=== PATIENT | male | born 2005 | race Caucasian/White ===

== ENCOUNTER 2024-10-30 16:30 | Day surgery (SDC) | payer OTHER, SELFPAY ==
[2024-10-30] VITALS (13 sets, daily range): BP systolic 106–131; BP diastolic 65–88; PULSE 52–85; RESP 16–18; TEMP 36.1–36.6; O2SAT 98–100; BMI 19.7; BMI 20.7
--- NOTE | 2024-10-30 16:54 | ED_ITS ---
HPI - Abdominal Pain General Date Seen: 10/30/24 Chief Complaint: Abdominal Pain Stated Complaint: pain in lower right side of abdomen Time Seen by Provider: 10/30/24 16:31 Source: patient, family, RN notes reviewed and old records reviewed Mode of arrival: ambulatory Limitations: no limitations History of Present Illness HPI narrative: Patient is a 19-year-old gentleman who presents here with the worst abdominal pain he has ever had, he describes initially starting 1.5 hours ago, is periumbilical region has now spread across his lower abdomen right greater than left. He has no radiation to his back or into his scrotum, he describes a little bit of radiation up to his upper abdominal region. He does know what makes it better or worse, except that it has worsened as it has been over the time course. He has taken no medications for the pain but his mother manage to talk him into taking some Gas-X approximately 1 hour ago that did not help. Denies any fevers chills or sweats no history of any bowel issues associated with this such as diarrhea inability to pass gas, or worsening with this. He did make himself retch a couple times, and feels nauseous. Denies any dysuria frequency or blood in his urine. He has no previous history of any abdominal surgeries. Or any abdominal problems. He does not take any chronic medications and has no known allergies. Denies any alcohol, smoking, or drug use. 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 For mostly [employer] Related Data Home Medications ?Medication ?Instructions ?Recorded ?Confirmed No Known Home Medications 10/30/2410/06 Allergies Allergy/AdvReac Type Severity Reaction Status Date / Time No Known Drug Allergies Allergy Verified 10/30/24 16:37 Review of Systems Status of ROS Reports: 10 or more systems reviewed and unremarkable except as noted in History and below [facility] Social History Smoking Status: Never smoker How often do you have a drink containing alcohol: 2-3 times a week How many standard drinks containing alcohol do you have on a typical day: 3 or 4 How often do you have six or more drinks on one occasion: Never AUDIT-C Alcohol total score: 4 Non-prescribed substance use: denies use Exam Narrative: Exam Narrative: On examination in room 3 he is in some mild distress, nontoxic looking pupils equal round reactive to light , no scleral icterus and his vital signs are normal. TMs are normal oropharynx normal neck is supple there is no meningismus chest is good air entry bilateral with no wheezing crackles noted his heart sounds are normal. Easy respirations, scaphoid abdomen with tenderness I would describe as moderate in his lower abdominal region right greater than left, he does not have any peritoneal signs are localization. There is no masses, bowel sounds are quiet. Normal groins bilaterally with absence of any hernias normal male genitalia, with testicles both descended and normal no tenderness to palpation, circumcised. Skin reveals no petechiae rashes moves all extremities independently and well, normal power his upper lower extremities, is neurologically intact. Const: Vital Signs, click to edit/add: Vital Signs - 24 hr 10/30/24 16:33 10/30/24 17:18 10/30/24 17:33 Temperature 97.0 F L Pulse Rate 52 L 59 L Pulse Rate [Pulse Oximeter] 59 L Respiratory Rate 16 Blood Pressure Blood Pressure [Ri ght Upper Arm] 121/74 Pulse Oximetry 100 100 100 Oxygen Delivery Me thod Room Air 10/30/24 17:34 10/30/24 17:35 10/30/24 17:41 Temperature Pulse Rate 53 L 68 75 Pulse Rate [Pulse Oximeter] Respiratory Rate 16 16 Blood Pressure 126/88 131/88 Blood Pressure [Ri ght Upper Arm] Pulse Oximetry 100 100 100 Oxygen Delivery Me thod 10/30/24 17:45 Temperature Pulse Rate 81 Pulse Rate [Pulse Oximeter] Respiratory Rate Blood Pressure Blood Pressure [Ri ght Upper Arm] Pulse Oximetry 100 Oxygen Delivery Me thod Course Reevaluation(s) Time of Reevaluation #1: 18:31 Reevaluation #1: Discussed with patient and patient's mother, that Dr. Fernandes is currently in the operating room, and she should be out around 9:00 p.m.. Surgery will be after that. We are safe to wait. He will not eat to be NPO we will give him more pain medication as needed. She did have some questions about whether not he would stay overnight, given the late hour that is usually the case but I will leave that up to the surgeon and the patient. Patient is ASA 1 for surgery. Consultations Consultation #1: Dr. Fernandes Time: 18:21 Consultation #2: I discussed the case with the general surgeon on-call, currently in the operating room, but expected to do this laparoscopically in a few hours. We will keep the patient in the emergency room keep him NPO and pain under control. Vital Signs Vital signs: Initial Vital Signs Temperature 97.0 F L 10/30/24 16:33 Temperature Source Temporal Artery Scan 10/30/24 16:33 Pulse Rate 59 L 10/30/24 16:33 Respiratory Rate 16 10/30/24 16:33 Blood Pressure 121/74 10/30/24 16:33 Blood Pressure Mean 89 10/30/24 16:33 Blood Pressure Position Sitting 10/30/24 16:33 Pulse Oximetry 100 10/30/24 16:33 Oxygen Delivery Method Room Air 10/30/24 16:33 Vital Signs Temperature 97.0 F L 10/30/24 16:33 Pulse Rate 59 L 10/30/24 16:33 Respiratory Rate 16 10/30/24 16:33 Blood Pressure 121/74 10/30/24 16:33 Pulse Oximetry 100 10/30/24 16:33 Oxygen Delivery Method Room Air 10/30/24 16:33 Temperature 97.0 F L 10/30/24 16:33 Pulse Rate 81 10/30/24 17:45 Respiratory Rate 16 10/30/24 17:41 Blood Pressure 131/88 10/30/24 17:41 Pulse Oximetry 100 10/30/24 17:45 Oxygen Delivery Method Room Air 10/30/24 16:33 Medications Administered Medications: Discontinued Medications Generic Name Dose Route Start Last Admin Trade Name Khalifq PRN Reason Stop Dose Admin Hydromorphone HCl 0.5 mg 10/30/24 16:51 10/30/24 17:11 Hydromorphone 0.5 Mg/0.5 Ml Inj IVP 10/30/24 16:52 0.5 mg ONCE ONE Administration Sodium Chloride 1,000 mls @ 1,000 mls/hr 10/30/24 17:00 10/30/24 18:10 0.9 % Sodium Chloride 1000 Ml IV 10/30/24 17:59 Infused .Q1H BLANCO Infusion Ketorolac Tromethamine 30 mg 10/30/24 16:51 10/30/24 17:11 Ketorolac 30 Mg/Ml Inj IVP 10/30/24 16:52 30 mg ONCE ONE Administration Ondansetron HCl 4 mg 10/30/24 16:51 10/30/24 17:12 Ondansetron 2 Mg/Ml Inj IVP 10/30/24 16:52 4 mg ONCE ONE Administration MDM - Abdominal Pain MDM Narrative Medical decision making narrative: During this evaluation of this patient I considered multiple differential diagnosis is which included the life-threatening such as appendicitis, aortic aneurysm, mesenteric ischemia, bowel perforation, volvulus, and bowel obstruction. Other differential diagnosis is include but are not limited to cholecystitis, pancreatitis, hepatitis, gastritis, GERD, diverticulitis, peptic ulcer disease, pyelonephritis/UTI, renal colic/stone, testicular torsion as well as other acute scrotal processes, inflammatory bowel disease, as well as other etiologies Medical Records Attestation: I reviewed the patient's medical records. Lab Data Attestation: I reviewed the patient's lab results. Labs: Lab Results 10/30/24 10/30/24 Range/Units 17:00 18:10 WBC 11.50 H (4.50-11.00) K/uL RBC 4.82 (4.30-5.90) m/uL Hgb 14.3 (13.5-17.5) gm/dL Hct 41.9 (37.0-53.0) % MCV 87 (80-100) fL MCH 30 (26-34) pg MCHC 34 (32-36) gm/dL RDW Coeff of Mary Grace 12.6 (11.5-15.5) % Plt Count 225 (140-440) K/uL Neut % (Auto) 82.8 H (42.0-72.0) % Lymph % (Auto) 10.3 L (20-44) % Millard % (Auto) 6.2 (0.0-11.0) % Eos % (Auto) 0.3 (0.0-7.0) % Baso % (Auto) 0.3 (0.0-3.0) % Neut # (Auto) 9.50 H (1.7-7.0) K/uL Lymph # (Auto) 1.20 (0.90-2.90) K/uL Millard # (Auto) 0.70 (0.00-0.90) K/UL Eos # (Auto) 0.00 (0.00-0.50) K/uL Baso # (Auto) 0.00 (0.00-0.30) K/uL Abs Immat Gran (auto) 0.00 (0.00-0.30) K/uL Imm/Tot Granulo (auto) 0.1 % Sodium 137 (135-149) mmol/L Potassium 3.9 (3.6-5.1) mmol/L Chloride 103 (96-114) mmol/L Carbon Dioxide 26 (20-32) mmol/L Anion Gap 8 (7-15) mEq/L BUN 14 (5-24) mg/dL Creatinine 0.9 (0.5-1.5) mg/dL Estimated Creat Clear 117.45 Estimated GFR 125 ml/min Glucose 113 (60-115) mg/dL Lactate 1.0 (0.5-1.9) mmol/L Calcium 9.3 (8.4-10.6) mg/dL Total Bilirubin 0.8 (0.1-1.5) mg/dL Direct Bilirubin 0.4 (0.0-0.5) mg/dL AST 31 (12-35) U/L ALT 14 (4-50) U/L Alkaline Phosphatase 54 (40-150) U/L C-Reactive Protein < 0.5 L (0.5-1.0) mg/dL Total Protein 7.7 (6.0-8.3) g/dL Albumin 4.6 (3.3-5.0) g/dL Amylase 73 (18-89) U/L Lipase 34 (23-300) U/L Procalcitonin 0.04 (<0.50) ng/mL Urine Color Yellow (Yellow) Urine Appearance Clear (Clear) Urine pH 7.0 (5.0-8.5) Ur Specific [place] 1.015 (1.000-1.030) Urine Protein Negative (Negative) Urine Glucose (UA) Negative (Negative) Urine Ketones 1+ A (Negative) Urine Blood Negative (Negative) Urine Nitrite Negative (Negative) Urine Bilirubin Negative (Negative) Urine Urobilinogen 0.2 (0.2-1.0) Ur Leukocyte Esterase Negative (Negative) Urine RBC 0-2 (0-2) Urine WBC 0-2 (0-5) Ur Squamous Epith Cells None (None-Few) Urine Bacteria None (None) Imaging Data CT scan - abdomen: Attestation: I have reviewed the pertinent imaging results. My impression: Acute appendicitis with appendicolith. Radiologist's impression: [address] [address] Diagnostic Imaging Report Patient: Wes Dejesus MR#: [id number] : 2005 Acct:[id number] Loc: ED Service Date: 10/30/[address]: Ordering Physician: Sharif Hill M.D. Date of Service: 10/30/24 Procedure(s): CT abdomen pelvis w con Accession Number(s): [id number] cc: Provider,Not a Local; Sharif Hill M.D.~ For Patients: As a result of the Cures Act, medical imaging exams and procedure reports are released immediately into your electronic medical record. You may view this report before your referring provider. If you have questions, please contact your health care provider. INDICATION: Abdominal pain, right lower and periumbilical. TECHNIQUE: CT abdomen and pelvis acquired with 69 cc Isovue 370 IV contrast. COMPARISON: None. FINDINGS: Lower chest: Unremarkable. Liver: Normal in size and attenuation. No suspicious masses. Gallbladder and bile ducts: No stones or inflammation. No biliary dilatation. Pancreas: No mass or inflammation. Spleen: Normal in size. No masses. Few calcified granulomas. Adrenal glands: No suspicious mass. Kidneys: Bilateral kidneys are normal in size with symmetric enhancement. No nephrolithiasis or hydronephrosis. GI tract: No findings of bowel obstruction. Dilatation of the appendix measuring up to 8 mm (2/111 and ). Minimal periappendiceal inflammatory changes. Appendicular lith at the base. No adjacent free air or free fluid. No loculated fluid collection. Vasculature: Abdominal aorta is normal in caliber. Lymph nodes: No lymphadenopathy. Peritoneum/Abdominal Wall: Minimal free fluid in pelvis, likely physiologic. Prostate is normal in size. Pelvis: Minimal free fluid in pelvis. Bones: Unremarkable for age. IMPRESSION: Dilated appendix measuring up to 8 millimeter, appendicular lith at the base with very minimal periappendicular inflammation. Findings are concerning for appendicitis in the appropriate clinical settings. Please note that all CT scans at this facility use dose modulation, iterative reconstruction, and/or weight-based dosing when appropriate to reduce radiation dose to as low as reasonably achievable. Dictated by Kanchan Henderson MD @ 10/30/2024 6:11:18 PM (Electronically Signed) Discharge Plan Discharge Clinical Impression: Acute appendicitis Patient Disposition: XFER to OR Condition: Stable Instructions: Exploratory Laparoscopy (DC) Follow Up/Referrals: Provider,Not a Local [Primary Care Provider, Family Practice]
--- OUTSIDE RECORDS SUMMARY | 2024-10-30 17:07 | XMS_ITS | Clinical Summary ---
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 Well child check 12/23/2013 Immunizations Immunization Administration Dates Next Due AMB Influenza, IIV3 (Age >=3 years)(Flu Clinic Only) 12/20/2008 DTaP 08/10/2004 [id number] (Pediarix) 2003,2003,0 2003 DTaP-IPV (Kinrix) 05/28/2008 HIB PRP-OMP (PedvaxHIB) 08/10/2004,2003, Hepatitis A (Peds) 05/21/2016,10/14/2015 Hepatitis B (Peds) 2003 Influenza A (H1N1), Inactiva dimas (Age >=3 Years) 01/28/2009 Influenza,LAIV4 Live Intrana shima (Flumist) 12/18/2013 MENINGOCOCCAL VACCINE 2 VIAL 2MO-55YO (MENVEO) 10/06/2020,10/14/2015 MMR 05/28/2008,05/05/2004 Pneumococcal conj 7-Valent (Prevnar 7) 0 08/10/2004,2003,2003,07/01 Tdap 10/14/2015 Varicella Vaccine 05/28/2008,05/05/2004 Family History Medical History Relation Name Comments Good Health Father Jaison Good Health Mother Criss Relation Name Status Comments Father Jaison Mother Criss Social History Tobacco Use Types Packs/Day Years Used Date Smoking Tobacco: Never Smokeless Tobacco: Never Alcohol Use Standard Drinks/Week Comments No 0 (1 standard drink = 0.6 oz pur e alcohol) PHQ-2 Answer Date Recorded PHQ-2 TOTAL SCORE 1 03/05/2022 Financial Resource Strain Answer Date R ecorded Difficulty of Paying Living Expenses Not on file 03/07/2021 Difficulty of Paying Living Expenses Not on file 03/07/2021 Sex and Gender Information Value Date Recorded Sex Assigned at Not on file 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 Gender Identity Not on file Sexual Orientation Not on file Occupation Industry Job Start Date Job End Date Student Not on file Not on file Not on file Obstetrics History Last Filed Vital Signs Vital Sign Reading Time Taken Comments Blood Pressure 98/74 03/05/2022 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 Pulse 64 03/05/2022 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 Temperature 36.8 C (98.2 F) 03/05/2022 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 Respiratory Rate 16 03/05/2022 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 Oxygen Saturation 98% 12/12/2019 7:59 PM CDT Inhaled Oxygen Concentration - - Weight 62.6 kg (138 lb) 03/05/2022 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 Height 178.4 cm (5' 10.25) 03/05/2022 1:[address] Body Mass Index 19.66 03/05/2022 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 Plan of Treatment Health Maintenance Due Date Last Done Comments HIV for age 15-65 2018 HPV series for age 9-26 (1 - Male 3-dose series) 2018 Hepatitis C screening for age 18-79 2021 BMI (ht and wt on same day) for age 18+ 03/05/2023 03/05/2022 Depression screening for age 12+ 03/05/2023 03/05/2022, 10/06/2020, 10/19/2018, Additional history exists COVID-19 vaccine series (2023- season) 2023 Influenza Vaccine (#1) 2024 12/18/2013, 2008 Tetanus booster 10/13/2025 10/14/2015 Hepatitis B series for 19+ Completed 11/03, 2003, 2003, Additional history exists Pneumococcal series for age 6-49 Aged Out 08/10/2004, 2003, 2003, Additional history exists No longer eligible based on patient's age to complete this topic Meningococcal series for age 11-21 Completed 10/06/2020, 10/14/2015 Insurance [facility] Care Teams Film Editor Relationship Specialty Start Date End Date Pilo Bhardwaj MD PCP - General Family Practice 06/27/18
[2024-10-30 17:08] LABS: Lactate* 1.0 mmol/L (0.5-1.9)
[2024-10-30] MEDS: ONDANSETRON 2 MG/ML inj 4 MG IVP (17:12)
[2024-10-30 17:14] LABS: Hematocrit 41.9 % (37.0-53.0); Hemoglobin* 14.3 gm/dL (13.5-17.5); Immature Granulocytes Pct Auto 0.1 %; Mean Corpuscular HGB Conc 34 gm/dL (32-36); Mean Corpuscular Hemoglobin 30 pg (26-34); Mean Corpuscular Volume 87 fL (80-100); RDW Coefficient of Variation % 12.6 % (11.5-15.5); Red Blood Count 4.82 m/uL (4.30-5.90); White Blood Count* 11.50 K/uL (4.50-11.00)
[2024-10-30 17:24] LABS: Albumin* 4.6 g/dL (3.3-5.0); Chloride* 103 mmol/L (96-114); Potassium* 3.9 mmol/L (3.6-5.1); Sodium* 137 mmol/L (135-149)
[2024-10-30 17:26] LABS: Blood Urea Nitrogen* 14 mg/dL (5-24); Creatinine* 0.9 mg/dL (0.5-1.5); Est. Creatinine Clearance* 117.45; Estimated Glomerular Filt Rate 125 ml/min
[2024-10-30 17:27] LABS: Alanine Aminotransferase* 14 U/L (4-50); Alkaline Phosphatase* 54 U/L (40-150); Anion Gap 8 mEq/L (7-15); Aspartate Amino Transferase* 31 U/L (12-35); Bilirubin Direct* 0.4 mg/dL (0.0-0.5); Bilirubin Total* 0.8 mg/dL (0.1-1.5); Calcium* 9.3 mg/dL (8.4-10.6); Carbon Dioxide* 26 mmol/L (20-32); Glucose* 113 mg/dL (60-115); Total Protein* 7.7 g/dL (6.0-8.3)
[2024-10-30 17:44] LABS: Procalcitonin* 0.04 ng/mL (<0.50)
[2024-10-30 17:50] LABS: Immature Granulocytes Abs Auto 0.00 K/uL (0.00-0.30); Lymphocytes Absolute Auto 1.20 K/uL (0.90-2.90); Slide Review Reflex No
[2024-10-30 18:18] LABS: Appearance Urine Clear (Clear)
--- NOTE | 2024-10-30 18:59 | PM.GSHP ---
History of Present Illness History of Present Illness Date Seen: 10/30/24 Chief complaint: pain in lower right side of abdomen Narrative: Wes Dejesus is a 19 year old male who presents to the emergency department this evening after developing intense abdominal pain noted in his entire stomach around 2:30 p.m.. The pain progressed and so he came into the emergency department. He had nausea with this as well. He has not had any bowel changes. No urinary symptoms. The pain is not necessarily worse with any activity such as movement. Pain medication made it less intense. It has not migrated and at what is mainly across his lower abdomen. No fevers. He has not had anything like this before. He is otherwise healthy. He has not had surgery before no past medical history. [facility] Social History (Updated 10/30/24 @ 21:19 by Kristine Fernandes MD) Narrative: He works as a [employer] Smoking Status: Never smoker How often do you have a drink containing alcohol: 2-3 times a week How many standard drinks containing alcohol do you have on a typical day: 3 or 4 How often do you have six or more drinks on one occasion: Never AUDIT-C Alcohol total score: 4 Non-prescribed substance use: denies use Meds Home Medications and Allergies Home Medications ?Medication ?Instructions ?Recorded ?Confirmed ?Type No Known Home Medications 10/30/24 10/30/24 History Allergies Allergy/AdvReac Type Severity Reaction Status Date / Time No Known Drug Allergies Allergy Verified 10/30/24 16:37 Exam Narrative: Exam Narrative: General appearance: Alert, cooperative, and in no distress Eyes: PERRLA, eye lids clear, and sclera white HENT Head: Normocephalic Ears: External ears normal Pulmonary: Clear to auscultation bilaterally Cardiovascular Heart: Regular rate and rhythm Extremities: warm and well perfused Gastrointestinal Abdominal: No scars. Patient is very mildly tender in the lower abdomen. Suprapubic region seems to be the most tender with very very mild rebound. Musculoskeletal: Extremities: Upper: Both upper extremities have normal joint range of motion and intact strength. Lower: Both lower extremities have normal joint range of motion and intact strength. Skin: Normal skin color, texture, and turgor. Neurologic: No focal deficits Psychiatric: Alert, oriented, cooperative, normal affect. Const: Vital Signs, click to edit/add: Vital Signs - 24 hr 10/30/24 16:33 10/30/24 17:18 10/30/24 17:33 Temperature 97.0 F L Pulse Rate 52 L 59 L Pulse Rate [Pulse Oximeter] 59 L Respiratory Rate 16 Blood Pressure Blood Pressure [Ri ght Upper Arm] 121/74 Pulse Oximetry 100 100 100 Oxygen Delivery Me thod Room Air 10/30/24 17:34 10/30/24 17:35 10/30/24 17:41 Temperature Pulse Rate 53 L 68 75 Pulse Rate [Pulse Oximeter] Respiratory Rate 16 16 Blood Pressure 126/88 131/88 Blood Pressure [Ri ght Upper Arm] Pulse Oximetry 100 100 100 Oxygen Delivery Me thod 10/30/24 17:45 10/30/24 18:00 10/30/24 18:01 Temperature Pulse Rate 81 85 79 Pulse Rate [Pulse Oximeter] Respiratory Rate 16 Blood Pressure 126/80 Blood Pressure [Ri ght Upper Arm] Pulse Oximetry 100 99 98 Oxygen Delivery Me thod Results Results Labs: White blood cell count is elevated at 11. CRP less than 0.5. LFTs normal. Lactate normal. Electrolytes within normal limits Abdomen CT scan report/results: report reviewed and image reviewed Additional studies: INDICATION: Abdominal pain, right lower and periumbilical. TECHNIQUE: CT abdomen and pelvis acquired with 69 cc Isovue 370 IV contrast. COMPARISON: None. FINDINGS: Lower chest: Unremarkable. Liver: Normal in size and attenuation. No suspicious masses. Gallbladder and bile ducts: No stones or inflammation. No biliary dilatation. Pancreas: No mass or inflammation. Spleen: Normal in size. No masses. Few calcified granulomas. Adrenal glands: No suspicious mass. Kidneys: Bilateral kidneys are normal in size with symmetric enhancement. No nephrolithiasis or hydronephrosis. GI tract: No findings of bowel obstruction. Dilatation of the appendix measuring up to 8 mm (2/111 and 5/). Minimal periappendiceal inflammatory changes. Appendicular lith at the base. No adjacent free air or free fluid. No loculated fluid collection. Vasculature: Abdominal aorta is normal in caliber. Lymph nodes: No lymphadenopathy. Peritoneum/Abdominal Wall: Minimal free fluid in pelvis, likely physiologic. Prostate is normal in size. Pelvis: Minimal free fluid in pelvis. Bones: Unremarkable for age. IMPRESSION: Dilated appendix measuring up to 8 millimeter, appendicular lith at the base with very minimal periappendicular inflammation. Findings are concerning for appendicitis in the appropriate clinical settings. Please note that all CT scans at this facility use dose modulation, iterative reconstruction, and/or weight-based dosing when appropriate to reduce radiation dose to as low as reasonably achievable. Dictated by Kanchan Henderson MD @ 10/30/2024 6:11:18 PM Progress Note:A&P Assessment and plan (1) Acute appendicitis: Status: Acute Plan The patient is a 19-year-old male with acute appendicitis. We discussed that appendectomy is the preferred treatment for this. This can most often be done laparoscopically. We discussed risks and benefits of the procedure including but not limited to bleeding, need for conversion to open, risk of injury to other structures, need for possible bowel resection, and abscess formation. The patient understands that the risk of abscess is higher if the appendix is perforated. It is early in the course of his illness and there is currently no evidence of perforation at this time. Unfortunately because of an emergency we will be unable to proceed to the OR this evening, however we will plan on surgery 1st thing in the morning. He should be NPO at least 8 hours prior to surgery. At this time he would like to eat and so it is okay for him to have a snack but he can have nothing further after 10:00 p.m.. He did sign informed consent. We will plan on surgery 1st thing in the morning.
[2024-10-31] VITALS (15 sets, daily range): BP systolic 94–114; BP diastolic 51–73; PULSE 41–58; RESP 12–16; TEMP 36.7–36.8; O2SAT 95–99
[2024-10-31] MEDS: HYDROCODONE-ACETAMIN 5-325 MG 1 TAB PO
[2024-10-31] MEDS: LACTATED RINGERS 1000 ML 1,000 ML 125 ML IV (01:21)
[2024-10-31] MEDS: PIPERACILLIN/TAZOBACTAM 3.375 GM in 0.9 % SODIUM CHLORIDE Mini-bag 100 ML IVPB ×2 (05:32)
--- NOTE | 2024-10-31 06:40 | P.ANES_ITS ---
Anesthesia Charges Start Date/Time Anesthesia Start Date: 10/31/24 Anesthesia Start Time: 06:45 Stop Date/Time Anesthesia Stop Date: 10/31/24 Anesthesia Stop Time: 07:40 Coding CPT Codes CPT Codes: ANESTH SURG LOWER ABDOMEN - 54017 ([id number]) P1 - NORMAL HEALTHY PATIENT, QK - HEADING UP MACHINE OPERATOR 2-4 CNCRNT ANES PROC, QX - IN STORE DEMONSTRATOR SVLaura W/ MED DIRECTION
--- NOTE | 2024-10-31 06:40 | W.ANESCHARGE ---
Anesthesia Charges Start Date/Time Anesthesia Start Date: 10/31/24 Anesthesia Start Time: 06:45 Stop Date/Time Anesthesia Stop Date: 10/31/24 Anesthesia Stop Time: 07:40 Coding CPT Codes CPT Codes: ANESTH SURG LOWER ABDOMEN - 04246 ([id number]) P1 - NORMAL HEALTHY PATIENT, QK - COMMUNICATION CENTER OPERATOR 2-4 CNCRNT ANES PROC, QX - CONDUCTOR SLEEPING CAR SVLaura W/ MED DIRECTION
[2024-10-31] MEDS: BUPIVACAINE 0.25% 30 ML INJECTION (07:03)
--- NOTE | 2024-10-31 07:35 | P.GSOP_ITS ---
Operative Note Date of procedure: 10/31/24 Pre-op diagnosis: Acute appendicitis Post-op diagnosis: Same Type of Procedure: Laparoscopic appendectomy Indications: The patient is a 19-year-old male presented to the emergency department with several hours of severe abdominal pain. Workup revealed elevated white blood cell count and a dilated appendix with an appendicolith. I recommended appendectomy and after discussion of risks and benefits he agreed to proceed. Procedure Description: After discussing the risks and benefits of the procedure, the patient signed informed consent.? The operative site was marked and the patient was brought to the operating room and placed on the operating table in supine position.? Care was taken to pad the patient's pressure points.?? The patient was then intubated by anesthesia.?? The operative site was then prepped and draped in the usual sterile fashion.? A time-out was then performed. Entrance to the abdomen was obtained via a 5 mm optical trocar in the left upper quadrant. The abdomen was insufflated and briefly surveyed for any signs of i njury. There were none. A 12 mm port was placed inferior to the umbilicus as well as a 5 mm port in the left lower quadrant. Both were done under direct vision. The patient was then placed in Trendelenburg position with the right side up. The small bowel was gently moved out of the way and the appendix was in view. It appeared mildly thickened and dilated distally. There was no significant purulence and no fibrinous exudate. A small amount of dissection was necessary to free the appendix from the surrounding pelvic attachments. The appendix was grasped and pulled into view. A mesenteric window was created between the base of the appendix and the mesoappendix. An Endo-XIMENA purple load stapler was then used to transect the appendix at its base. A vascular load stapler was then used to divide the mesoappendix. The staple lines were inspected for bleeding. There was a small amount of bleeding on the mesenteric staple line. This was controlled with a 5 mm clip pulpwood contractor. The appendix was then removed from the abdomen using an Endo-Catch bag. The specimen was sent to pathology. The small bowel was run from the ligament of Treitz for at least 3 ft, ensuring no Meckel's diverticulum. The small bowel was normal. The ports were then removed and the abdomen was desufflated. The 12 mm port site fascia was closed with 0 Vicryl. The skin was then closed with absorbable subcuticular suture. Sterile dressings were then applied. Instrument sponge and needle counts were correct at the end of the case. The patient was then woken and transported to the PACU in stable condition. ? The patient tolerated the procedure well. Findings: Mildly inflamed and distended appendix Surgeon: Kristine Fernandes MD Estimated blood loss (mL): 5 Specimen: Appendix Condition: stable Disposition: PACU
--- NOTE | 2024-10-31 07:48 | PC.NURSE ---
Patient went to surgery and will not be returning to Med/surg he will recover in the same day surgery area and most likely will discharge to home from there.
--- NOTE | 2024-10-31 07:53 | P.ANES_ITS ---
Anesthesia Charges Start Date/Time Anesthesia Start Date: 10/31/24 Anesthesia Start Time: 06:45 Stop Date/Time Anesthesia Stop Date: 10/31/24 Anesthesia Stop Time: 07:40 Coding CPT Codes CPT Codes: ANESTH SURG LOWER ABDOMEN - 73569 ([id number]) QK - GAS USAGE METER CLERK 2-4 CNCRNT ANES PROC, QX - HYPNOTHERAPIST SVC W/ MD MED DIRECTION, P1 - NORMAL HEALTHY PATIENT
--- NOTE | 2024-10-31 07:53 | W.ANESCHARGE ---
Anesthesia Charges Start Date/Time Anesthesia Start Date: 10/31/24 Anesthesia Start Time: 06:45 Stop Date/Time Anesthesia Stop Date: 10/31/24 Anesthesia Stop Time: 07:40 Coding CPT Codes CPT Codes: ANESTH SURG LOWER ABDOMEN - 16731 ([id number]) QK - APPLE CHECKER 2-4 CNCRNT ANES PROC, QX - SHUTTLE ROUTE VEHICLE OPERATOR SVC W/ MD MED DIRECTION, P1 - NORMAL HEALTHY PATIENT
[2024-10-31] MEDS: ONDANSETRON 2 MG/ML inj 4 MG IVP (08:30)
[2024-10-31] MEDS: LACTATED RINGERS 1000 ML 1,000 ML 100 ML IV (08:42)
== END 2024-10-31 09:51 | disposition home or self-care (01) ==
LOC: ED 18:20 → MEDSURG 10-31 06:26 → SS 10-31 10:36 → MEDSURG 10-31 10:36
PROVIDERS: Emergency Provider Family Medicine; Visit Provider Surgery
PROC: 0DTJ4ZZ Resection of Appendix, Percutaneous Endoscopic Approach (ICD-10-PCS; CPT 44970; principal; 2024-10-31 06:45)
DX: K35.80 Unspecified acute appendicitis (principal); R10.31 Right lower quadrant pain
CPT/HCPCS: 44970; 00840; 36415; 74177; 80048; 80076; 81001; 82150; 83605; 83690; 84145; 85025; 86140; 88304; 94761; 99284; 99285; A9270; J0330; J0665; J1100; J1171; J1885; J2250; J2405; J2543; J2704; J2710; J3010; J7030; J7120; Q9967